=== PATIENT | female | born 1990 | race Caucasian/White ===

== ENCOUNTER 2016-09-08 14:48 | Emergency (ER) | payer BC ==
[~2016-09-08] VITALS: Ht 157.5 cm; Wt 113.6 kg
[~2016-09-08 14:48] MED LIST: AMOXICILLIN 50500 MG PO; AUGMENTIN XR 101 TER PO; CEFTIN 250250 MG/TAB PO; NORCO 325 MG-51 TAB PO; PERCOCET 325 MG1 TA2 PO; ULTRAM 50MG TAB50 MG PO
[2016-09-08] MEDS ORDERED: IBU800 M1 PO (14:52)
[2016-09-08 14:53] VITALS: TEMP 97.1
[2016-09-08 15:32] LABS: BASO % 0.2 % (0.0-2.0); EOS # 0.1 (0.0-0.7); EOS % 0.8 % (0-4.0); GRAN # 8.3 (1.4-6.5); GRAN % 86.7 % (42.2-75.2); HEMATOCRIT 37.8 % (37.0-47.0); HEMOGLOBIN 12.4 g/dl (12.5-16.0); LYMPH # 0.7 (1.2-3.4); LYMPH % 6.8 % (20.0-51.0); MEAN CELL VOLUME 85 fl (80.0-100.0); MEAN CORPUSCULAR HEMOGLOBIN 28 pg (27.0-31.0); MEAN CORPUSCULAR HGB CONC 33 g/dl (33.0-37.0); MONO # 0.5 (0.1-0.6); MONO % 5.2 % (1.7-9.3); PLATELET COUNT 205 K/mm3 (130-400); RED BLOOD COUNT 4.45 M/mm3 (4.10-5.30); REDCELL DISTRIBUTION WIDTH-CV 13.2 % (11.5-14.5); WHITE BLOOD COUNT 9.6 K/mm3 (4.8-10.8)
[2016-09-08 15:35] LABS: INR 1.1 (0.8-3.0); PROTHROMBIN TIME 12.7 SECONDS (9.7-12.8)
[2016-09-08 15:38] LABS: PARTIAL THROMBOPLASTIN TIME 24.9 SECONDS (26.0-37.0)
[2016-09-08 15:39] LABS: ADJUSTED CALCIUM 8.9 mg/dL (8.4-10.2); ALBUMIN 3.8 gm/dL (3.5-5.0); CALCIUM 8.7 mg/dL (8.4-10.2); CREATININE, serum 0.68 mg/dL (0.52-1.25); POTASSIUM 3.7 mmol/L (3.4-5.0); TOTAL PROTEIN 7.5 gm/dL (6.4-8.2)
[2016-09-08] MEDS ORDERED: VOLTAREN 75 DR75 MG PO (16:31)
[2016-09-08] MEDS ORDERED: FLEXERIL 1010 MG/TAB PO (16:31)
[2016-09-08] MEDS ORDERED: PEPCID 20MG TAB20 MG PO (16:31)
[2016-09-08 17:24] VITALS: BP 106/61; PULSE 89
== END 2016-09-08 17:26 | disposition home or self-care (01) ==
LOC: COL.ER 14:48
PROVIDERS: Emergency Medicine
DX: R07.89 Other chest pain (principal); M54.5 Low back pain; K21.9 Gastro-esophageal reflux disease without esophagitis
CPT/HCPCS: J1885; J2765; J3010; J7030; Q9967

== ENCOUNTER 2016-10-01 04:38 | Emergency (ER) | payer BC ==
[~2016-10-01] VITALS: Ht 157.5 cm; Wt 107.3 kg
[~2016-10-01 04:38] MED LIST changes: +FLEXERIL 1010 MG/TAB PO; +IBU800 M1 PO; +PEPCID 20MG TAB20 MG PO; +VOLTAREN 75 DR75 MG PO
[2016-10-01 04:40] VITALS: BP 119/44; TEMP 97.6
[2016-10-01] MEDS ORDERED: ROBAXIN 50500 MG/TAB PO (04:46)
[2016-10-01 05:37] LABS: BASO # 0.1 (0.0-0.2); BASO % 0.5 % (0.0-2.0); EOS # 0.3 (0.0-0.7); EOS % 2.8 % (0-4.0); GRAN # 6.2 (1.4-6.5); GRAN % 62.6 % (42.2-75.2); LYMPH # 2.7 (1.2-3.4); LYMPH % 27.7 % (20.0-51.0); MEAN CELL VOLUME 85 fl (80.0-100.0); MEAN CORPUSCULAR HGB CONC 33 g/dl (33.0-37.0); MEAN PLATELET VOLUME 10.1 fl (7.4-10.4); MONO # 0.6 (0.1-0.6); MONO % 6.2 % (1.7-9.3); PLATELET COUNT 264 K/mm3 (130-400); RED BLOOD COUNT 4.33 M/mm3 (4.10-5.30); REDCELL DISTRIBUTION WIDTH-CV 13.4 % (11.5-14.5); WHITE BLOOD COUNT 9.9 K/mm3 (4.8-10.8)
[2016-10-01 05:40] LABS: HEMATOCRIT 36.6 % (37.0-47.0); HEMOGLOBIN 11.9 g/dl (12.5-16.0); MEAN CORPUSCULAR HEMOGLOBIN 27 pg (27.0-31.0)
[2016-10-01 05:45] LABS: ADJUSTED CALCIUM 9.4 mg/dL (8.4-10.2); ALANINE AMINOTRANSFERASE 43 U/L (9-52); ALBUMIN 4.4 gm/dL (3.5-5.0); ALKALINE PHOSPHATASE 124 U/L (50-136); ANION GAP 15 mmol/L (7-16); BILIRUBIN,TOTAL 0.9 mg/dL (0.0-1.0); BLOOD UREA NITROGEN 11 mg/dL (7-17); CALCIUM 9.7 mg/dL (8.4-10.2); CARBON DIOXIDE 25 mmol/L (22-30); CHLORIDE 100 mmol/L (98-107); CREATININE, serum 0.68 mg/dL (0.52-1.25); GLUCOSE 93 mg/dL (74-106); LIPASE 81 U/L (23-300); POTASSIUM 4.1 mmol/L (3.4-5.0); SODIUM 140 mmol/L (137-145); TOTAL PROTEIN 8.1 gm/dL (6.4-8.2)
[2016-10-01 05:57] LABS: B-TYPE NATRIURETIC PEPTIDE <11 pg/mL (0-125)
[2016-10-01 05:58] LABS: TROPONIN-I < 0.012 ng/mL (0.000-0.034)
[2016-10-01 07:52] VITALS: PULSE 97
== END 2016-10-01 11:23 | disposition home or self-care (01) ==
LOC: COL.ER 04:38
PROVIDERS: Emergency Medicine
DX: R07.89 Other chest pain (principal); J45.909 Unspecified asthma, uncomplicated
CPT/HCPCS: J8540

== ENCOUNTER 2017-10-16 18:46 | Inpatient (IN) | payer BC ==
[~2017-10-16] VITALS: Ht 157.5 cm; Wt 105.1 kg
[~2017-10-16 18:46] MED LIST changes: +ROBAXIN 50500 MG/TAB PO
[2017-10-16 19:31] LABS: BASO % 0.3 % (0.0-2.0); EOS # 0.2 (0.0-0.7); EOS % 1.5 % (0-4.0); GRAN # 9.4 (1.4-6.5); GRAN % 78.4 % (42.2-75.2); LYMPH # 1.5 (1.2-3.4); LYMPH % 12.8 % (20.0-51.0); MEAN CELL VOLUME 82 fl (80.0-100.0); MEAN CORPUSCULAR HGB CONC 32 g/dl (33.0-37.0); MONO # 0.8 (0.1-0.6); MONO % 6.7 % (1.7-9.3); PLATELET COUNT 274 K/mm3 (130-400); RED BLOOD COUNT 4.06 M/mm3 (4.10-5.30); REDCELL DISTRIBUTION WIDTH-CV 14.6 % (11.5-14.5)
[2017-10-16 19:33] LABS: HEMATOCRIT 33.2 % (37.0-47.0); HEMOGLOBIN 10.5 g/dl (12.5-16.0); MEAN CORPUSCULAR HEMOGLOBIN 26 pg (27.0-31.0)
[2017-10-16 19:38] LABS: ALBUMIN 3.9 gm/dL (3.5-5.0); BILIRUBIN,TOTAL 0.6 mg/dL (0.0-1.0); CALCIUM 8.9 mg/dL (8.4-10.2); CREATININE, serum 0.76 mg/dL (0.52-1.25); POTASSIUM 3.7 mmol/L (3.4-5.0); TOTAL PROTEIN 8.4 gm/dL (6.4-8.2)
[2017-10-16 21:17] LABS: COLLECTION METHOD CLEAN CATCH
[2017-10-16 21:24] LABS: MUCOUS Present /lpf; PH 5 (5-8); SQUAMOUS EPITHELIAL 0-2 /hpf; URINE APPEARANCE Clear; URINE BACTERIA None Seen /hpf; URINE BILIRUBIN Negative (NEGATIVE); URINE BLOOD Negative (NEGATIVE); URINE COLOR Yellow; URINE GLUCOSE Negative (NEGATIVE); URINE KETONE Negative (NEGATIVE); URINE LEUKOCYTE ESTERASE Negative (NEGATIVE); URINE NITRATE Negative (NEGATIVE); URINE PROTEIN(semi-quant) Negative (NEGATIVE); URINE UROBILINOGEN >=4.0 mg/dL (NEGATIVE)
[2017-10-16] MEDS ORDERED: 00186-0370-20 IH (23:31)
[2017-10-16 23:56] VITALS: BP 120/64; PULSE 104; TEMP 97.6
[2017-10-17] VITALS (14 sets, daily range): BP systolic 98–129; BP diastolic 49–88; PULSE 73–104; TEMP 97.6–98.6
[2017-10-17 06:06] LABS: BASO % 0.4 % (0.0-2.0); EOS % 0.3 % (0-4.0); GRAN # 8.5 (1.4-6.5); GRAN % 82.9 % (42.2-75.2); LYMPH % 9.9 % (20.0-51.0); MEAN CELL VOLUME 80 fl (80.0-100.0); MEAN CORPUSCULAR HGB CONC 33 g/dl (33.0-37.0); MEAN PLATELET VOLUME 10.1 fl (7.4-10.4); MONO # 0.6 (0.1-0.6); PLATELET COUNT 220 K/mm3 (130-400); RED BLOOD COUNT 3.61 M/mm3 (4.10-5.30); REDCELL DISTRIBUTION WIDTH-CV 14.6 % (11.5-14.5)
[2017-10-17 06:11] LABS: HEMATOCRIT 28.9 % (37.0-47.0); HEMOGLOBIN 9.4 g/dl (12.5-16.0); MEAN CORPUSCULAR HEMOGLOBIN 26 pg (27.0-31.0)
[2017-10-17 06:21] LABS: ALBUMIN 3.2 gm/dL (3.5-5.0); BILIRUBIN,TOTAL 0.6 mg/dL (0.0-1.0); CALCIUM 7.9 mg/dL (8.4-10.2); CREATININE, serum 0.71 mg/dL (0.52-1.25); POTASSIUM 3.9 mmol/L (3.4-5.0); TOTAL PROTEIN 6.8 gm/dL (6.4-8.2)
[2017-10-17 08:13] LABS: INR 1.3 (0.8-3.0); PROTHROMBIN TIME 15.2 SECONDS (9.7-12.8)
[2017-10-18 02:00] VITALS: BP 115/55; PULSE 82; TEMP 98.5
[2017-10-18 07:06] LABS: IRON,SERUM 40 ug/dL (35-150); TOTAL IRON BINDING CAPACITY 267 ug/dL (265-497)
[2017-10-18 07:21] LABS: FERRITIN 27 ng/mL (6-137)
[2017-10-18 10:38] VITALS: BP 109/62; PULSE 76; TEMP 97.9
[2017-10-18 13:20] VITALS: BP 108/63; PULSE 68; TEMP 98.2
[2017-10-18 17:19] VITALS: BP 112/59; PULSE 64; TEMP 98.4
[2017-10-18 21:58] VITALS: BP 116/72; PULSE 62; TEMP 98.6
[2017-10-19] VITALS (9 sets, daily range): BP systolic 98–122; BP diastolic 43–72; PULSE 57–86; TEMP 98.4–98.8
[2017-10-19 06:27] LABS: BASO % 0.5 % (0.0-2.0); EOS # 0.1 (0.0-0.7); EOS % 0.9 % (0-4.0); GRAN # 5.9 (1.4-6.5); GRAN % 73.8 % (42.2-75.2); LYMPH # 1.4 (1.2-3.4); LYMPH % 17.3 % (20.0-51.0); MEAN CELL VOLUME 81 fl (80.0-100.0); MEAN CORPUSCULAR HGB CONC 31 g/dl (33.0-37.0); MEAN PLATELET VOLUME 10.3 fl (7.4-10.4); MONO # 0.6 (0.1-0.6); MONO % 7.1 % (1.7-9.3); PLATELET COUNT 198 K/mm3 (130-400); RED BLOOD COUNT 3.33 M/mm3 (4.10-5.30); REDCELL DISTRIBUTION WIDTH-CV 14.6 % (11.5-14.5)
[2017-10-19 06:46] LABS: CALCIUM 8.2 mg/dL (8.4-10.2); CREATININE, serum 0.85 mg/dL (0.52-1.25); POTASSIUM 3.7 mmol/L (3.4-5.0)
[2017-10-19 06:50] LABS: HEMATOCRIT 27.1 % (37.0-47.0); HEMOGLOBIN 8.5 g/dl (12.5-16.0); MEAN CORPUSCULAR HEMOGLOBIN 26 pg (27.0-31.0)
[2017-10-19] MEDS ORDERED: QUESTRAN LI4 GM/5 GM PO (10:53)
[2017-10-19] MEDS ORDERED: PROMETHAZINE12.5 M5 PO (10:55)
[2017-10-19] MEDS ORDERED: FLAGYL500 MG PO (10:56)
[2017-10-19] MEDS ORDERED: ROXICODONE 55 MG/TAB PO (10:57)
== END 2017-10-19 12:11 | disposition home or self-care (01) | DRG 443 ==
LOC: COL.ER 18:46 → SURG 22:22
PROVIDERS: Emergency Medicine; Internal Medicine Gastroenterology; Nurse Practitioner Family; Physician Assistant
PROC: 0FB23ZX Excision of Left Lobe Liver, Percutaneous Approach, Diagnostic (ICD-10-PCS; principal; 2017-10-17)
PROC: 0DB98ZX Excision of Duodenum, Via Natural or Artificial Opening Endoscopic, Diagnostic (ICD-10-PCS; 2017-10-19)
PROC: 0DBC8ZX Excision of Ileocecal Valve, Via Natural or Artificial Opening Endoscopic, Diagnostic (ICD-10-PCS; 2017-10-19 08:00)
DX: K76.89 Other specified diseases of liver (principal); R10.12 Left upper quadrant pain; R10.11 Right upper quadrant pain; D64.9 Anemia, unspecified; J45.909 Unspecified asthma, uncomplicated; R19.7 Diarrhea, unspecified
CPT/HCPCS: 99223-AI; 99232-AI; 99239; J1170; J1885; J2060; J2250; J2270; J2405; J2543; J2704; J2765; J3010; J7030; Q9967

== ENCOUNTER 2018-01-26 21:19 | Emergency (ER) | payer BC ==
[~2018-01-26] VITALS: Ht 157.5 cm; Wt 101.5 kg
[~2018-01-26 21:19] MED LIST changes: +00186-0370-20 IH; +FLAGYL500 MG PO; +PROMETHAZINE12.5 M5 PO; +QUESTRAN LI4 GM/5 GM PO; +ROXICODONE 55 MG/TAB PO
[2018-01-26 21:27] VITALS: TEMP 99
[2018-01-26 22:36] LABS: COLLECTION METHOD CLEAN CATCH
[2018-01-26 22:42] LABS: MUCOUS Present /lpf; PH 5 (5-8); SQUAMOUS EPITHELIAL 0-2 /hpf; URINE APPEARANCE Hazy; URINE BACTERIA None Seen /hpf; URINE BILIRUBIN Negative (NEGATIVE); URINE BLOOD Negative (NEGATIVE); URINE COLOR Yellow; URINE GLUCOSE Negative (NEGATIVE); URINE KETONE Negative (NEGATIVE); URINE LEUKOCYTE ESTERASE Negative (NEGATIVE); URINE NITRATE Negative (NEGATIVE); URINE PROTEIN(semi-quant) Negative (NEGATIVE)
[2018-01-26 22:50] LABS: BASO # 0.1 (0.0-0.2); BASO % 0.6 % (0.0-2.0); EOS # 0.2 (0.0-0.7); EOS % 1.8 % (0-4.0); GRAN % 65.3 % (42.2-75.2); HEMATOCRIT 34.3 % (37.0-47.0); HEMOGLOBIN 10.8 g/dl (12.5-16.0); LYMPH # 2.3 (1.2-3.4); LYMPH % 24.7 % (20.0-51.0); MEAN CELL VOLUME 79 fl (80.0-100.0); MEAN CORPUSCULAR HEMOGLOBIN 25 pg (27.0-31.0); MEAN CORPUSCULAR HGB CONC 32 g/dl (33.0-37.0); MEAN PLATELET VOLUME 10.1 fl (7.4-10.4); MONO # 0.7 (0.1-0.6); MONO % 7.4 % (1.7-9.3); PLATELET COUNT 248 K/mm3 (130-400); RED BLOOD COUNT 4.32 M/mm3 (4.10-5.30); REDCELL DISTRIBUTION WIDTH-CV 14.2 % (11.5-14.5)
[2018-01-26 23:04] LABS: BILIRUBIN,TOTAL 0.4 mg/dL (0.0-1.0); C-REACTIVE PROTEIN 0.6 mg/dL (0.0-0.9); CALCIUM 8.8 mg/dL (8.4-10.2); CREATININE, serum 0.7 mg/dL (0.52-1.25); POTASSIUM 4.1 mmol/L (3.4-5.0); TOTAL PROTEIN 7.5 gm/dL (6.4-8.2)
[2018-01-27 00:13] VITALS: BP 106/78; PULSE 77
== END 2018-01-27 00:22 | disposition home or self-care (01) ==
LOC: COL.ER 21:19
PROVIDERS: Emergency Medicine
DX: R10.13 Epigastric pain (principal); J45.909 Unspecified asthma, uncomplicated; Z90.49 Acquired absence of other specified parts of digestive tract; Z90.89 Acquired absence of other organs; Z86.018 Personal history of other benign neoplasm
CPT/HCPCS: J1170; J2405; J7030; Q9967

== ENCOUNTER 2018-08-20 17:39 | Emergency (ER) | payer BC ==
[~2018-08-20] VITALS: Ht 157.5 cm; Wt 95.0 kg
[2018-08-20 17:53] VITALS: TEMP 98.1
[2018-08-20 18:36] LABS: BASO % 0.5 % (0.0-2.0); EOS # 0.2 (0.0-0.7); EOS % 1.8 % (0-4.0); GRAN # 5.8 (1.4-6.5); GRAN % 66.5 % (42.2-75.2); HEMATOCRIT 37.5 % (37.0-47.0); HEMOGLOBIN 11.6 g/dl (12.5-16.0); LYMPH % 23.2 % (20.0-51.0); MEAN CELL VOLUME 78 fl (80.0-100.0); MEAN CORPUSCULAR HEMOGLOBIN 24 pg (27.0-31.0); MEAN CORPUSCULAR HGB CONC 31 g/dl (33.0-37.0); MEAN PLATELET VOLUME 10.4 fl (7.4-10.4); MONO # 0.7 (0.1-0.6); MONO % 7.7 % (1.7-9.3); PLATELET COUNT 270 K/mm3 (130-400); RED BLOOD COUNT 4.79 M/mm3 (4.10-5.30); REDCELL DISTRIBUTION WIDTH-CV 14.9 % (11.5-14.5)
[2018-08-20 18:41] LABS: COLLECTION METHOD CLEAN CATCH
[2018-08-20 18:47] LABS: ALANINE AMINOTRANSFERASE 26 U/L (9-52); ALBUMIN 4.4 gm/dL (3.5-5.0); ALKALINE PHOSPHATASE 92 U/L (50-136); ANION GAP 11 mmol/L (7-16); AST,SGOT 24 U/L (15-37); BILIRUBIN,TOTAL 0.4 mg/dL (0.0-1.0); BLOOD UREA NITROGEN 19 mg/dL (7-17); C-REACTIVE PROTEIN 0.7 mg/dL (0.0-0.9); CALCIUM 9.4 mg/dL (8.4-10.2); CARBON DIOXIDE 22 mmol/L (22-30); CHLORIDE 105 mmol/L (98-107); CREATININE, serum 0.98 mg/dL (0.52-1.25); GLUCOSE 85 mg/dL (74-106); LIPASE 129 U/L (23-300); POTASSIUM 4.1 mmol/L (3.4-5.0); SODIUM 138 mmol/L (137-145); TOTAL PROTEIN 8.4 gm/dL (6.4-8.2)
[2018-08-20 18:48] LABS: MUCOUS Present /lpf; PH 5 (5-8); URINE APPEARANCE Clear; URINE BACTERIA None Seen /hpf; URINE BILIRUBIN Negative (NEGATIVE); URINE BLOOD Negative (NEGATIVE); URINE COLOR Yellow; URINE GLUCOSE Negative (NEGATIVE); URINE KETONE Negative (NEGATIVE); URINE LEUKOCYTE ESTERASE 2+ (NEGATIVE); URINE NITRATE Negative (NEGATIVE); URINE PROTEIN(semi-quant) Negative (NEGATIVE); URINE UROBILINOGEN Negative (NEGATIVE)
[2018-08-20 19:02] LABS: HCG,QUANTITATIVE < 2 mIU/mL (0-5)
[2018-08-20] MEDS ORDERED: ZOFRAN ODT4 MG PO (20:23)
[2018-08-20] MEDS ORDERED: CEPHALEXIN500 M1 PO (20:24)
[2018-08-20 21:01] VITALS: BP 129/82; PULSE 87
== END 2018-08-20 21:02 | disposition home or self-care (01) ==
LOC: COL.ER 17:39
PROVIDERS: Physician Assistant
DX: N39.0 Urinary tract infection, site not specified (principal); J45.909 Unspecified asthma, uncomplicated
CPT/HCPCS: J1885; J2405; J7030; Q9967

== ENCOUNTER → 2018-08-21 | Outpatient (CLI) | payer BC | LOC: COL.RAD 12:55 | DX: R10.2 Pelvic and perineal pain (principal) ==

== ENCOUNTER 2018-09-04 15:14 | Emergency (ER) | payer BC ==
[~2018-09-04 15:14] MED LIST changes: +CEPHALEXIN500 M1 PO; +ZOFRAN ODT4 MG PO
[2018-09-04 15:33] VITALS: TEMP 98
[2018-09-04 16:41] LABS: BASO # 0.1 (0.0-0.2); BASO % 0.7 % (0.0-2.0); EOS # 0.2 (0.0-0.7); EOS % 2.3 % (0-4.0); GRAN # 4.7 (1.4-6.5); GRAN % 64.6 % (42.2-75.2); LYMPH # 1.8 (1.2-3.4); LYMPH % 24.3 % (20.0-51.0); MEAN CELL VOLUME 79 fl (80.0-100.0); MEAN CORPUSCULAR HGB CONC 31 g/dl (33.0-37.0); MONO # 0.6 (0.1-0.6); PLATELET COUNT 224 K/mm3 (130-400); RED BLOOD COUNT 3.96 M/mm3 (4.10-5.30); REDCELL DISTRIBUTION WIDTH-CV 14.9 % (11.5-14.5)
[2018-09-04 16:48] LABS: ALBUMIN 3.7 gm/dL (3.5-5.0); BILIRUBIN,TOTAL 0.4 mg/dL (0.0-1.0); CALCIUM 8.6 mg/dL (8.4-10.2); CREATININE, serum 0.76 mg/dL (0.52-1.25); POTASSIUM 3.9 mmol/L (3.4-5.0)
[2018-09-04 16:49] LABS: HEMATOCRIT 31.4 % (37.0-47.0); HEMOGLOBIN 9.6 g/dl (12.5-16.0); MEAN CORPUSCULAR HEMOGLOBIN 24 pg (27.0-31.0)
[2018-09-04] MEDS ORDERED: FLEXERIL 1010 MG/TAB PO (18:28)
[2018-09-04 18:32] VITALS: BP 106/64; PULSE 84
== END 2018-09-04 18:32 | disposition home or self-care (01) ==
LOC: COL.ER 15:14
PROVIDERS: Emergency Medicine
DX: M94.0 Chondrocostal junction syndrome [Tietze] (principal); D64.9 Anemia, unspecified; F41.9 Anxiety disorder, unspecified; J45.909 Unspecified asthma, uncomplicated; Z90.49 Acquired absence of other specified parts of digestive tract; Z98.51 Tubal ligation status
CPT/HCPCS: J1885; Q9967

== ENCOUNTER 2018-10-18 15:30 | Emergency (ER) | payer BC ==
[~2018-10-18] VITALS: Ht 157.5 cm; Wt 105.5 kg
[2018-10-18 15:40] VITALS: BP 128/79; TEMP 97.9
[2018-10-18 16:03] LABS: COLLECTION METHOD CLEAN CATCH
[2018-10-18 16:09] LABS: MUCOUS Present /lpf; PH 6 (5-8); URINE APPEARANCE Clear; URINE BACTERIA None Seen /hpf; URINE BILIRUBIN Negative (NEGATIVE); URINE BLOOD Negative (NEGATIVE); URINE COLOR Yellow; URINE GLUCOSE Negative (NEGATIVE); URINE KETONE Negative (NEGATIVE); URINE LEUKOCYTE ESTERASE Trace (NEGATIVE); URINE NITRATE Negative (NEGATIVE); URINE PROTEIN(semi-quant) Negative (NEGATIVE); URINE UROBILINOGEN Negative (NEGATIVE)
[2018-10-18] MEDS ORDERED: FLEXERIL 1010 MG/TAB PO (16:59)
[2018-10-18] MEDS ORDERED: LIDODERM 5% PATC1 EA TP (16:59)
[2018-10-18 17:52] VITALS: PULSE 106
== END 2018-10-18 17:54 | disposition home or self-care (01) ==
LOC: COL.ER 15:30
PROVIDERS: Physician Assistant
DX: M54.5 Low back pain (principal); Z90.89 Acquired absence of other organs; Z90.49 Acquired absence of other specified parts of digestive tract; Z98.51 Tubal ligation status; Z88.5 Allergy status to narcotic agent
CPT/HCPCS: J1885

== ENCOUNTER 2018-11-07 17:04 | Emergency (ER) | payer BC ==
[~2018-11-07] VITALS: Ht 165.1 cm; Wt 100.0 kg
[~2018-11-07 17:04] MED LIST changes: +LIDODERM 5% PATC1 EA TP
[2018-11-07 17:08] VITALS: TEMP 97.5
[2018-11-07 17:55] LABS: COLLECTION METHOD CLEAN CATCH
[2018-11-07 18:01] LABS: BASO % 0.3 % (0.0-2.0); EOS # 0.1 (0.0-0.7); EOS % 1.1 % (0-4.0); GRAN # 6.6 (1.4-6.5); LYMPH # 1.8 (1.2-3.4); LYMPH % 19.6 % (20.0-51.0); MEAN CELL VOLUME 80 fl (80.0-100.0); MEAN CORPUSCULAR HEMOGLOBIN 25 pg (27.0-31.0); MEAN CORPUSCULAR HGB CONC 31 g/dl (33.0-37.0); MEAN PLATELET VOLUME 9.9 fl (7.4-10.4); MONO # 0.5 (0.1-0.6); MONO % 5.8 % (1.7-9.3); PLATELET COUNT 262 K/mm3 (130-400); RED BLOOD COUNT 4.46 M/mm3 (4.10-5.30); REDCELL DISTRIBUTION WIDTH-CV 15.5 % (11.5-14.5)
[2018-11-07 18:02] LABS: HEMATOCRIT 35.7 % (37.0-47.0)
[2018-11-07 18:07] LABS: MUCOUS Present /lpf; PH 6 (5-8); URINE APPEARANCE Hazy; URINE BACTERIA None Seen /hpf; URINE BILIRUBIN Negative (NEGATIVE); URINE BLOOD Negative (NEGATIVE); URINE COLOR Yellow; URINE GLUCOSE Negative (NEGATIVE); URINE KETONE Negative (NEGATIVE); URINE LEUKOCYTE ESTERASE 1+ (NEGATIVE); URINE NITRATE Negative (NEGATIVE); URINE PROTEIN(semi-quant) Negative (NEGATIVE); URINE UROBILINOGEN Negative (NEGATIVE)
[2018-11-07 18:10] LABS: ALBUMIN 4.1 gm/dL (3.5-5.0); BILIRUBIN,TOTAL 0.6 mg/dL (0.0-1.0); CALCIUM 9.2 mg/dL (8.4-10.2); CREATININE, serum 0.78 (0.52-1.25); POTASSIUM 4.4 mmol/L (3.4-5.0); TOTAL PROTEIN 8.1 gm/dL (6.4-8.2)
[2018-11-07] MEDS ORDERED: NORCO 325 MG-51 TAB PO (19:07)
[2018-11-07 19:38] VITALS: BP 113/57; PULSE 94
== END 2018-11-07 19:57 | disposition home or self-care (01) ==
LOC: COL.ER 17:04
PROVIDERS: Nurse Practitioner
DX: R10.2 Pelvic and perineal pain (principal); F41.9 Anxiety disorder, unspecified; J45.909 Unspecified asthma, uncomplicated; Z88.5 Allergy status to narcotic agent; Z90.49 Acquired absence of other specified parts of digestive tract; Z98.51 Tubal ligation status
CPT/HCPCS: J1885; J2060; J2405; J7030

== ENCOUNTER → 2018-12-19 | Outpatient (CLI) | payer BC ==
[2018-12-19 11:47] LABS: BASO % 0.4 % (0.0-2.0); EOS # 0.3 (0.0-0.7); EOS % 2.8 % (0-4.0); GRAN # 6.9 (1.4-6.5); GRAN % 70.5 % (42.2-75.2); HEMOGLOBIN 10.5 g/dl (12.5-16.0); LYMPH # 1.9 (1.2-3.4); LYMPH % 19.9 % (20.0-51.0); MEAN CELL VOLUME 79 fl (80.0-100.0); MEAN CORPUSCULAR HEMOGLOBIN 25 pg (27.0-31.0); MEAN CORPUSCULAR HGB CONC 32 g/dl (33.0-37.0); MEAN PLATELET VOLUME 9.9 fl (7.4-10.4); MONO # 0.6 (0.1-0.6); PLATELET COUNT 272 K/mm3 (130-400); RED BLOOD COUNT 4.14 M/mm3 (4.10-5.30); REDCELL DISTRIBUTION WIDTH-CV 15.4 % (11.5-14.5)
[2018-12-19 11:48] LABS: HEMATOCRIT 32.5 % (37.0-47.0)
[2018-12-19 11:58] LABS: BILIRUBIN,TOTAL 0.5 mg/dL (0.0-1.0); CREATININE, serum 0.82 (0.52-1.25); POTASSIUM 3.9 mmol/L (3.4-5.0); TOTAL PROTEIN 7.9 gm/dL (6.4-8.2)
== END ==
LOC: COL.LAB 10:45
PROVIDERS: Family Medicine
DX: R10.12 Left upper quadrant pain (principal); R93.2 Abnormal findings on diagnostic imaging of liver and biliary tract; R19.7 Diarrhea, unspecified

== ENCOUNTER → 2018-12-21 | Outpatient (CLI) | payer BC | LOC: COL.RAD 11:27 | DX: N73.9 Female pelvic inflammatory disease, unspecified (principal); Z90.49 Acquired absence of other specified parts of digestive tract; Z90.710 Acquired absence of both cervix and uterus | CPT/HCPCS: Q9967 ==

== ENCOUNTER 2019-04-28 19:47 | Emergency (ER) | payer BC ==
[2019-04-28 20:01] VITALS: BP 130/70; TEMP 98.5
[2019-04-28] MEDS ORDERED: PROAIR HFA0.09 MG/AC IH (20:14)
[2019-04-28] MEDS ORDERED: BENTYL 10MG10 MG/CAP PO (20:19)
[2019-04-28 21:52] VITALS: PULSE 89
== END 2019-04-28 21:52 | disposition home or self-care (01) ==
LOC: COL.ER 19:47
DX: M94.0 Chondrocostal junction syndrome [Tietze] (principal); J45.909 Unspecified asthma, uncomplicated; K58.9 Irritable bowel syndrome, unspecified; Z88.5 Allergy status to narcotic agent; Z90.89 Acquired absence of other organs; Z98.51 Tubal ligation status
CPT/HCPCS: J1885

== ENCOUNTER 2019-08-15 16:16 | Emergency (ER) | payer BC ==
[~2019-08-15] VITALS: Ht 157.5 cm; Wt 94.2 kg
[~2019-08-15 16:16] MED LIST changes: +BENTYL 10MG10 MG/CAP PO; +PROAIR HFA0.09 MG/AC IH
[2019-08-15 16:28] VITALS: BP 114/64; TEMP 98.5
[2019-08-15 16:49] LABS: COLLECTION METHOD CLEAN CATCH
[2019-08-15 17:25] LABS: BASO % 0.5 % (0.0-2.0); EOS # 0.1 (0.0-0.7); EOS % 1.5 % (0-4.0); GRAN # 5.8 (1.4-6.5); HEMOGLOBIN 11.1 g/dl (12.5-16.0); LYMPH # 1.5 (1.2-3.4); LYMPH % 18.8 % (20.0-51.0); MEAN CELL VOLUME 81 fl (80.0-100.0); MEAN CORPUSCULAR HEMOGLOBIN 25 pg (27.0-31.0); MEAN CORPUSCULAR HGB CONC 31 g/dl (33.0-37.0); MEAN PLATELET VOLUME 11.2 fl (7.4-10.4); MONO # 0.5 (0.1-0.6); MONO % 5.8 % (1.7-9.3); PLATELET COUNT 210 K/mm3 (130-400); RED BLOOD COUNT 4.37 M/mm3 (4.10-5.30); REDCELL DISTRIBUTION WIDTH-CV 14.4 % (11.5-14.5)
[2019-08-15 17:26] LABS: HEMATOCRIT 35.5 % (37.0-47.0)
[2019-08-15 17:39] LABS: PH 5 (5-8); URINE APPEARANCE Hazy; URINE COLOR Yellow; URINE GLUCOSE Negative (NEGATIVE); URINE PROTEIN(semi-quant) 1+ (NEGATIVE)
[2019-08-15 17:40] LABS: URINE BILIRUBIN Negative (NEGATIVE); URINE BLOOD Negative (NEGATIVE); URINE KETONE Negative (NEGATIVE); URINE LEUKOCYTE ESTERASE Negative (NEGATIVE); URINE NITRATE Negative (NEGATIVE); URINE UROBILINOGEN Negative (NEGATIVE)
[2019-08-15 17:53] LABS: MUCOUS Present /lpf; URINE BACTERIA Occasional /hpf
[2019-08-15 18:41] LABS: ALBUMIN 4.4 gm/dL (3.5-5.0); BILIRUBIN,TOTAL 0.5 mg/dL (0.0-1.0); CALCIUM 9.2 mg/dL (8.4-10.2); CREATININE, serum 0.78 (0.52-1.25); POTASSIUM 3.8 mmol/L (3.4-5.0)
[2019-08-15] MEDS ORDERED: VOLTAREN 75 DR75 MG PO (19:02)
[2019-08-15 19:22] VITALS: PULSE 90
== END 2019-08-15 19:22 | disposition home or self-care (01) ==
LOC: COL.ER 16:16
PROVIDERS: Family Medicine
DX: M54.5 Low back pain (principal)

== ENCOUNTER 2024-03-23 23:33 | Emergency (ER) | payer BC ==
[~2024-03-23] VITALS: Ht 157.5 cm; Wt 60.0 kg
[2024-03-23 23:50] VITALS: TEMP 98.5
[2024-03-24] MEDS ORDERED: Pantoprazole 40 MG in NS 10 ML IV ONE (00:15)
[2024-03-24] MEDS ORDERED: NS 1,000 ML IV ONE (00:15)
[2024-03-24] MEDS ORDERED: Ketorolac 30 MG/ML VIAL IV ONE (00:15)
[2024-03-24 00:49] LABS: BASO % 0.4 % (0.0-2.0); EOS # 0.2 K/mm3 (0.0-0.7); EOS % 2.4 % (0.0-4.0); GRAN % 77.6 % (42.2-75.2); HEMOGLOBIN 11.9 g/dl (12.5-16.0); LYMPH % 12.6 % (20.0-51.0); MEAN CELL VOLUME 94 fl (80.0-100.0); MEAN CORPUSCULAR HEMOGLOBIN 31 pg (27-31); MEAN CORPUSCULAR HGB CONC 33 g/dl (33.0-37.0); MEAN PLATELET VOLUME 10.4 fl (7.4-10.4); MONO # 0.5 K/mm3 (0.1-0.6); MONO % 6.9 % (1.7-9.3); PLATELET COUNT 173 K/mm3 (130-400); RED BLOOD COUNT 3.83 M/mm3 (4.10-5.30); REDCELL DISTRIBUTION WIDTH-CV 12.5 % (11.5-14.5)
[2024-03-24 00:50] LABS: HEMATOCRIT 35.8 % (37.0-47.0)
[2024-03-24 01:24] LABS: ALBUMIN 3.4 g/dL (3.5-5.0); BILIRUBIN,TOTAL 0.3 mg/dL (0.2-1.2); CALCIUM 8.9 mg/dL (8.4-10.2); CREATININE, serum 0.72 mg/dL (0.57-1.11); POTASSIUM 4.1 mEq/L (3.5-4.5); TOTAL PROTEIN 6.8 g/dl (6.2-8.1)
[2024-03-24] MEDS ORDERED: fentaNYL 50 MCG/ML 2 ML VIAL IV ONE (01:30)
[2024-03-24] MEDS ORDERED: Iohexol 300 - 100 ML VIAL IV ONE (01:50)
[2024-03-24] MEDS ORDERED: NS 50 ML IV SCH (01:50)
[2024-03-24] MEDS ORDERED: Home oxyCODONE/Acetaminophen 5/325 MG #4 TAB/PACK PO ONE (02:45)
[2024-03-24] MEDS ORDERED: PERCOCET 325 MG1 TA2 PO (02:50)
[2024-03-24] MEDS ORDERED: PROTONIX20 MG PO (02:50)
[2024-03-24 03:09] VITALS: BP 110/69; PULSE 79
== END 2024-03-24 03:25 | disposition home or self-care (01) ==
LOC: COL.ER 23:33
PROVIDERS: Physician Assistant
DX: K29.70 Gastritis, unspecified, without bleeding (principal); K76.89 Other specified diseases of liver
CPT/HCPCS: J1885; J2470; J3010; J7030; Q9967

== ENCOUNTER → 2024-03-25 | Outpatient (CLI) | payer BC ==
[~2024-03-25] MED LIST changes: +PROTONIX20 MG PO
== END ==
LOC: COL.RAD 05:48
DX: R16.0 Hepatomegaly, not elsewhere classified (principal); Z98.890 Other specified postprocedural states